=== PATIENT | male | born 1960 | race Caucasian/White ===

== ENCOUNTER 2017-04-02 13:54 | Emergency (ER) | payer SELFPAY ==
[~2017-04-02] VITALS: Ht 167.6 cm; Wt 87.0 kg
[~2017-04-02 13:54] MED LIST: NO HOME MEDS
[2017-04-02 14:10] VITALS: Ht 167.6 cm; Wt 87.0 kg
[2017-04-02] MEDS ORDERED: METOCLOPRAMIDE 10 MG INJ IV STA (19:07)
--- NOTE | 2017-04-02 19:10 | ERD ---
ER Documentation Chief Complaint Date/Time DATE: 04/02/17 TIME: 19:07 Chief Complaint chest pain since yesterday and headache HPI Patient is a 56-year-old male who presents with multiple complaints. He reports that for the last 2 days he has had elevated blood pressure. He checks his blood pressure daily, but had not checked it over the weekend. On Saturday, his blood pressure was 140/85. On Saturday and today, the blood pressure was noted to be 170s systolic. Patient reports having gradual onset, mild, achy pain to the left lateral chest at 10:00 this morning. He states that it was worse with certain movements of his torso. He went for a walk and the pain went away. He has not had recurrence since that time. He denies shortness of breath or cough, no fever. He also reports having chronic neck muscle stiffness that causes intermittent headaches. He reports since yesterday he has had a mild headache that is gradual in onset. No vomiting. ROS All systems reviewed and are negative except as per history of present illness. Medications Home Meds Active Scripts Acetaminophen* (Tylophen*) 500 Mg Capsule, 1 CAP PO Q6H Y for PAIN AND OR ELEVATED TEMP, #20 CAP Prov:CHRIS EAST MD 04/02/17 Reported Medications Amlodipine Besylate* (Norvasc*) 5 Mg Tablet, 5 MG PO DAILY, TAB 04/02/17 Losartan Potassium* (Losartan Potassium*) 100 Mg Tablet, 100 MG PO DAILY, TAB 04/02/17 Discontinued Reported Medications [No Home Meds] No Conflict Check 02/20/11 Allergies Allergies: Coded Allergies: No Known Drug Allergy (Verified Allergy, Mild, 04/02/17) PMhx/Soc Past medical history: Hypertension, chronic neck pain Past surgical history: None Social history: Drinks alcohol on the weekends, denies tobacco or illicit drugs. History of Surgery: No Anesthesia Reaction: No Hx Neurological Disorder: No Hx Respiratory Disorders: No Hx Cardiac Disorders: No Hx Psychiatric Problems: No Hx Miscellaneous Medical Probl: No Hx Alcohol Use: Yes (BEER) Hx Substance Use: No Hx Tobacco Use: No FmHx Family History: No coronary disease, No diabetes Physical Exam Vitals Vital Signs Date Time Temp Pulse Resp B/P Pulse Ox O2 Delivery O2 Flow Rate FiO2 04/02/17 21:10 98.0 78 18 155/113 96 Room Air 04/02/17 19:25 98.0 59 18 162/100 96 Room Air 04/02/17 14:10 97.8 75 18 176/101 96 Physical Exam Const: Alert, no acute distress Head: Atraumatic Eyes: Normal Conjunctiva, no pallor, no icterus ENT: Normal External Ears, Nose and Mouth. Mucous membranes moist. Neck: Full range of motion..~ No meningismus. No JVD Resp: Clear to auscultation bilaterally no wheezes, no rales Cardio: Regular rate and rhythm, no murmurs Abd: Soft, non tender, non distended. Normal bowel sounds Skin: No petechiae or rashes Back: No midline or flank tenderness Ext: No cyanosis, or edema, no calf tenderness Neur: Awake and alert, cranial nerves II through XII intact bilaterally, strength and sensation full in 4 extremities. Psych: Normal Mood and Affect Result Diagram: 04/02/17191504/02/171915 Results 24 hrs Laboratory Tests Test 04/02/17 19:16 White Blood Count 6.910^3/ul Red Blood Count 5.1710^6/ul Hemoglobin 15.6g/dl Hematocrit 45.7% Mean Corpuscular Volume 88.4fl Mean Corpuscular Hemoglobin 30.2pg Mean Corpuscular Hemoglobin Concent 34.1g/dl Red Cell Distribution Width 12.4% Platelet Count 99031^3/UL Mean Platelet Volume 9.6fl Neutrophils % 56.4% Lymphocytes % 30.2% Monocytes % 11.2% Eosinophils % 1.6% Basophils % 0.3% Nucleated Red Blood Cells % 0.0/100WBC Neutrophils # 3.910^3/ul Lymphocytes # 2.110^3/ul Monocytes # 0.810^3/ul Eosinophils # 0.110^3/ul Basophils # 0.010^3/ul Nucleated Red Blood Cells # 0.010^3/ul Sodium Level 140mmol/L Potassium Level 3.9mmol/L Chloride Level 101mmol/L Carbon Dioxide Level 25mmol/L Anion Gap 18 Blood Urea Nitrogen 8mg/dl Creatinine 0.87mg/dl Glucose Level 99mg/dl Calcium Level 9.8mg/dl Troponin I < 0.012ng/ml Current Medications Medications (Trade) Dose Ordered Sig/Sabino Route PRN Reason Start Time Stop Time Status Last Admin Dose Admin Metoclopramide HCl (Reglan) 10 mg ONCE STAT IV 04/02/17 19:07 04/02/17 19:08 DC 04/02/17 19:20 Procedures/MDM EKG read by me: Time 1419, rate 76 Rhythm: Normal sinus [place]: Normal Intervals: Normal ST-T waves: no ischemic changes, T-wave flattening in lateral leads Ectopy: No Q-waves: No Impression: No evidence of ischemia or arrhythmia MDM: Patient is a 56-year-old male with labile blood pressure, that has been elevated for the last 2 days. He complains of chest pain that sounds consistent with a musculoskeletal etiology based upon it being related to movement and position. Is actually improved by exertion. There are no features that are concerning for coronary artery disease, PE, or aortic dissection. EKG, chest x-ray and troponin are unremarkable. There are no signs of end organ damage. The patient states that he is compliant with his medication. His blood pressure was noted to spontaneously improve while he was in the ER. He was treated with Reglan for headache. There are no red flags for subarachnoid hemorrhage or meningitis. The patient reports recording a normal blood pressure just 5 days ago. I advised him that he should continue to monitor his blood pressure, and return to the ER if he experiences new symptoms. Otherwise she should follow-up with his PMD in 2-3 days for titration of his antihypertensive medication. Departure Diagnosis: Primary Impression: Musculoskeletal chest pain Additional Impression: Hypertension Hypertension type: essential hypertension Qualified Code: I10 - Essential hypertension Condition: Stable CHRIS EAST MD April 02, 2017 19:10
[2017-04-02 19:29] LABS: ADD SCAN DIFF NO
[2017-04-02 19:32] LABS: BASOPHILS % 0.3 % (0.0-2.0); EOSINOPHILS # 0.1 10^3/ul (0.0-0.5); EOSINOPHILS % 1.6 % (0.0-7.0); HEMATOCRIT 45.7 % (42.0-52.0); HEMOGLOBIN 15.6 g/dl (14.0-18.0); LYMPHOCYTES # 2.1 10^3/ul (0.8-2.9); LYMPHOCYTES % 30.2 % (15.0-51.0); MEAN CORPUSCULAR HEMOGLOBIN 30.2 pg (29.0-33.0); MEAN CORPUSCULAR HGB CONC 34.1 g/dl (32.0-37.0); MEAN CORPUSCULAR VOLUME 88.4 fl (82.0-101.0); MEAN PLATELET VOLUME 9.6 fl (7.4-10.4); MONOCYTE # 0.8 10^3/ul (0.3-0.9); MONOCYTES % 11.2 % (0.0-11.0); NEUTROPHIL # 3.9 10^3/ul (1.6-7.5); NEUTROPHILS % 56.4 % (39.0-77.0); PLATELET COUNT 285 10^3/UL (140-415); RED BLOOD COUNT 5.17 10^6/ul (4.70-6.10); RED CELL DISTRIBUTION WIDTH 12.4 % (11.5-14.5); WHITE BLOOD COUNT 6.9 10^3/ul (4.8-10.8)
[2017-04-02] MEDS ORDERED: AMLO5TAB4 PO (19:35)
[2017-04-02] MEDS ORDERED: LOSA100T7 PO (19:35)
--- NOTE | 2017-04-02 19:45 | RADRPT ---
PROCEDURE: XR Chest. CLINICAL INDICATION: Chest pain TECHNIQUE: A single portable view of the chest was obtained. COMPARISON: None FINDINGS: The cardiomediastinal silhouette is within normal limits. The lungs and pleural spaces are clear. The soft tissues and osseous structures are unremarkable. IMPRESSION: No acute cardiopulmonary disease. RPTAT: HPNM Physician Juni Date Time Electronically viewed and signed by Ramos Alan Physician on 04/02/2017 19:45 /
[2017-04-02 19:48] LABS: CHLORIDE 101 mmol/L (97-110); POTASSIUM 3.9 mmol/L (3.5-5.1); SODIUM 140 mmol/L (135-144)
[2017-04-02 19:51] LABS: ANION GAP 18 (8-16); BLOOD UREA NITROGEN 8 mg/dl (7-20); CARBON DIOXIDE 25 mmol/L (21-31); CREATININE 0.87 mg/dl (0.61-1.24)
[2017-04-02 19:52] LABS: CALCIUM 9.8 mg/dl (8.4-10.2); GLUCOSE 99 mg/dl (70-220)
[2017-04-02 20:04] LABS: TROPONIN-I < 0.012 ng/ml (0.00-0.12)
[2017-04-02 21:10] VITALS: BP 155/113; PULSE 78; RESP 18; TEMP 98
[2017-04-02] MEDS ORDERED: ACET500C5 PO (21:11)
== END 2017-04-02 21:39 | disposition home or self-care (01) ==
LOC: E/R 13:54
DX: R07.9 Chest pain, unspecified (principal); I10 Essential (primary) hypertension
CPT/HCPCS: 71010; 80048; 84484; 85025; 93005; J2765